=== PATIENT | male | born 1960 | race Caucasian/White ===

== ENCOUNTER 2020-10-19 14:20 | Outpatient (REF) | payer BC, SELFPAY ==
[2020-10-19 19:01] LABS: Creatinine Urine 72.34 mg/dL; Microalbum/Creatinine Ratio Ur 45.6 ug/mg cr
== END 2020-10-19 14:21 | disposition home or self-care (01) ==
LOC: HO.MANLNP 14:20
PROVIDERS: PCP Internal Medicine; Visit Provider Internal Medicine
DX: E11.9 Type 2 diabetes mellitus without complications (principal)
CPT/HCPCS: 82043

== ENCOUNTER 2021-05-01 14:30 | Outpatient (REF) | payer BC, SELFPAY ==
[2021-05-02 03:57] LABS: Estimated Average Glucose 246 mg/dL; Hemoglobin A1c % 10.2 %
== END 2021-05-01 14:31 | disposition home or self-care (01) ==
LOC: HO.MANLDS 14:30
PROVIDERS: PCP Internal Medicine; Visit Provider Internal Medicine
DX: E11.9 Type 2 diabetes mellitus without complications (principal)
CPT/HCPCS: 36415; 83036